=== PATIENT | female | born 1960 | race Caucasian/White ===

== ENCOUNTER 2022-12-26 12:52 | Outpatient (CLI) | payer BC, SELFPAY ==
--- NOTE | 2022-12-26 13:08 | MM_ITS ---
WS: [id number] BILATERAL SCREENING DIGITAL TOMOSYNTHESIS MAMMOGRAM WITH CAD HISTORY: SCREEN COMPARISON: 02/27/2012 Bilateral CC and MLO views with tomosynthesis and synthetic mammography submitted. Computer aided det ection analyzed. Breast composition: There are scattered areas of fibroglandular density. No suspicious masses, microc alcifications or architectural distortion. Benign calcifications in each breast. MM/[place] [id number] IMPRESSION: BI-RADS: 2-Benign FOLLOW UP: 1 Year Follow-up
== END 2022-12-26 12:53 | disposition home or self-care (01) ==
LOC: RAD 12:54
PROVIDERS: PCP Family Medicine; Visit Provider Family Medicine
DX: R53.83 Other fatigue (principal); I10 Essential (primary) hypertension; R01.1 Cardiac murmur, unspecified; G47.00 Insomnia, unspecified; Z12.31 Encounter for screening mammogram for malignant neoplasm of breast
CPT/HCPCS: 77063; 77067; 80053; 80061; 82607; 83880; 84443; 85025; 87624

== ENCOUNTER 2023-01-24 13:05 | Outpatient (CLI) | payer BC, SELFPAY ==
--- NOTE | 2023-01-24 13:00 | USCV_ITS ---
Lexi Reilly Age: 62 Gender: F : 1960 Exam Date: 01/24/2023 13:38 Ordering Phys: Zbigniew Vásquez MD Technologist: SONIA Exam Location: [facility] [place] [facility] Indication: [place] BP: 156 / 86 HR: 77 Rhythm: Sinus Technical Quality: Adequate MEASUREMENTS (Male / Female) Normal Values 2D ECHO LVOT Diameter 2.0 cm LV Ejection Fraction MOD 2C 62.7 % LV Ejection Fraction 2C AL 66.5 % LA Diameter 3.3 cm LA Width 3.3 cm LA Height 3.9 cm RA Width 2.9 cm RA Height 3.5 cm Aorta at Sinotubular Diameter 2.1 cm IVC Diameter 1.5 cm M-MODE Aortic Annulus Diameter 2.6 cm LA Ao Ratio MM 1.2 MV E Point Septal Separation 0.5 cm DOPPLER AV Peak Velocity 267.7 cm/s LVOT Peak Velocity 88.0 cm/s AV Area Cont Eq vti 0.9 cm squared AV Area Cont Eq pk 1.0 cm squared MV Peak Velocity 90.0 cm/s MV Area PHT 3.5 cm squared Mitral E to A Ratio 0.9 MV E' Velocity 52.5 cm/s Mitral E to MV E' Ratio 8.8 Mitral E to LV E' Lateral Ratio 7.9 Mitral E to LV E' Septal Ratio 10.0 TR Peak Velocity 217.1 cm/s TR Peak Gradient 18.9 mmHg TR Mean Velocity 144.3 cm/s TR Mean Gradient 9.9 mmHg TR Velocity Time Integral 57.7 cm TV Peak E Velocity 71.0 cm/s Right Atrial Pressure 3.0 mmHg Pulmonary Artery Systolic Pressu 21.9 mmHg PV Peak Velocity 153.0 cm/s RV Acceleration Time 0.1 s RV Ejection Time 0.3 s RV AcT/ET 0.4 FINDINGS Left Ventricle Normal left ventricular size and systolic function, EF 67 %. No regional wall motion abnormalities.Grade I/IV diastolic dysfunction (abnormal relaxation filling pattern), normal to mildly elevated filling pressures. Right Ventricle The right ventricle is normal in size and function. Right Atrium The right atrium is normal in size. Left Atrium The left atrium is normal in size. Mitral Valve No gross abnormalities noted Aortic Valve Severe low gradient aortic valve stenosis, mean gradient 19 mmHg, EMMA 0.88 cm squared. Peak velocity of 2.76 m/s with a peak gradient of 31 mmHg. The aortic valve appears to be trileaflet Tricuspid Valve No gross abnormalities noted Pulmonic Valve No gross abnormalities noted Pericardium No pericardial effusion. Aorta Normal ascending aorta dimension. IVC The inferior vena cava appears normal. CONCLUSIONS Normal left ventricular size and systolic function, EF 67 %. No regional wall motion abnormalities.Grade I/IV diastolic dysfunction (abnormal relaxation filling pattern), normal to mildly elevated filling pressures. Severe, normal flow, low gradient, aortic valve stenosis, mean gradient 19 mmHg, EMMA 0.88 cm squared. Peak velocity of 2.76 m/s with a peak gradient of 31 mmHg. The aortic valve appears to be trileaflet. There is no pericardial effusion. There are no intracardiac masses. No similar previous studies are available for comparison Dr Lori Johnson MD [facility] (Electronically Signed) Final Date: 24 January 2023 15:37 S
== END 2023-01-24 13:06 | disposition home or self-care (01) ==
PROVIDERS: PCP Family Medicine; Visit Provider Family Medicine
DX: I10 Essential (primary) hypertension (principal); R01.1 Cardiac murmur, unspecified; R53.83 Other fatigue
CPT/HCPCS: 93306

== ENCOUNTER 2023-03-26 06:40 | Outpatient (CLI) | payer BC, SELFPAY ==
[2023-03-26 07:01] VITALS: BMI 27.8
--- NOTE | 2023-03-26 07:06 | ECG_ITS ---
[facility] Test Date: 2023-03-26 Pat Name: Lexi Reilly Department: Room: Gender: Female High Lighter: Nadiyanika TaIvy : 1960 Requested By: Zbigniew Brower Order Number: [id number] Romero MD: Alissa Youssef M.D. Interpretive Statements NAME OF STUDY: LEXISCAN SESTAMIBI STRESS TEST INDICATION: Chest Pain PROCEDURE: At the baseline, the blood pressure was 144/75 mm Hg with a heart rate of 69 bpm. The electrocardiogram showed sinus rhythm, normal axis. Normal ST and T's. The Lexiscan was infused over a period of 20 seconds. A total of 0.4 milligrams of Lexiscan was infused. The stress phase was continued for a total of 5 minutes. Heart rate at the end of the stress phase was 83 bpm with a blood pressure of 151/65 mm Hg. The EKG at the peak infusion revealed no significant ST-T wave changes. Sestamibi was injected 20 seconds after the Lexiscan infusion. Blood pressure at the end of the recovery phase was 146/65 mm Hg with a heart rate of 84 beats per minute. CONCLUSION: 1. No significant EKG changes with the LexiScan infusion. 2. No LexiScan induced chest pain or cardiac arrhythmia. 3. Normal blood pressure and heart rate response. 4. Sestamibi/sestamibi perfusion scan pending; see separate report. Electronically Signed On 03-26-2023 14:07:42 CDT by Alissa Youssef M.D. [id number]
--- NOTE | 2023-03-26 07:08 | NMCV_ITS ---
NM vera perf SPECT r/s* [id number] Lexi Reilly Age: 63 Gender: F : 1960 Exam Date: 03/26/2023 07:08 Ordering Phys: Zbigniew Vásquez MD Technologist: TRESA Veras Exam Location: [facility] Indications: HYPERTENSION, CHEST PAIN STRESS TEST Please see separate stress test report in [facility] for full findings IMAGE PROTOCOL Rest/Stress 1 Lexiscan Day Radiopharmaceutical Dose (mCi) Administration Site Administered by Rest: Tc-99m 10.4 IV TRESA Segal Sestamibi Stress:Tc-99m 32.7 IV TRESA Segal Sestamibi Rest: 26-Mar-2023 60 Discovery 630 Stress: 26-Mar-2023 30 Discovery 630 0.4mg Lexiscan. Images obtained in supine and prone position. SPECT RESULTS Technical Quality: Excellent Raw Data Analysis: Normal Image Corrections: No attenuation or motion correction applied Summed Stress Score: 2 Summed Rest Score: 0 Summed Difference Score: 2 PERFUSION FINDINGS SPECT images demonstrate homogeneous tracer distribution throughout the myocardium. FUNCTIONAL RESULTS (calculated via Gated SPECT) Stress Image LV EF (%): 83 Stress EDV (mL):81 TID: 0.88 Stress ESV (mL):14 FUNCTIONAL FINDINGS: The left ventricle is normal in size. Transient Ischemia Dilatation of 0.88. The left ventricular ejection fraction is normal with a value of 83%. There is hyperdynamic left ventricular global systolic function. There is hyperdynamic left ventricular wall thickening. IMPRESSIONS 1. Myocardial perfusion imaging is normal. 2. Overall left ventricular systolic function is normal without regional wall motion abnormalities, LVEF=83%. 3. No EKG changes with Lexiscan infusion. 4. Scan indicates low risk for cardiac events. Alissa Youssef MD (Electronically Signed) Final Date: 26 March 2023 14:04 S
[2023-03-26] MEDS: regadenoson 0.4 Mg/5 ml Syringe IVP (08:27)
[2023-03-26 08:43] VITALS: BP 145/65; PULSE 83
== END 2023-03-26 06:41 | disposition home or self-care (01) ==
PROVIDERS: PCP Family Medicine; Visit Provider Physician Assistant
DX: R07.9 Chest pain, unspecified (principal); I10 Essential (primary) hypertension
CPT/HCPCS: 36415; 78452; 93017; 96374; A9500; J2785

== ENCOUNTER → 2024-06-08 13:50 | Outpatient (BNVA) | payer BC, SELFPAY | PROVIDERS: PCP Family Medicine; Visit Provider Family Medicine | DX: J06.9 Acute upper respiratory infection, unspecified (principal) | CPT/HCPCS: 87400; 87426 ==

== ENCOUNTER 2024-07-11 20:24 | Emergency (ER) | payer BC, SELFPAY ==
[2024-07-11 20:28] VITALS: BP 181/62; PULSE 84; RESP 16; TEMP 36.7; O2SAT 98; BMI 28.6
--- NOTE | 2024-07-12 00:07 | ED_ITS ---
HPI - Wound/Laceration 2 General: Chief Complaint: Wound/Laceration Stated Complaint: Rt Hand Index finger Cut Time Seen by Provider: 07/11/24 21:08 Source: patient and family Mode of arrival: ambulatory Limitations: no limitations History of Present Illness: Was cleaning a can of a recycling when she caught her finger between the can and the lid on it and it took a piece about her thumb. Would not stop dripping and bleeding and so she applied a bandage and put pressure and came up here. Anytime she takes pressure off the bandage it is still bleeding. Onset (ago): hour(s) Related Data Home Medications Medication Instructions Recorded Confirmed amlodipine 5 mg tablet mg PO 08/18/23 06/08/24 losartan 50 mg tablet mg PO 02/09/24 06/08/24 Previous Rx's Medication Instructions Recorded montelukast 10 mg tablet 10 mg PO DAILY #90 tabs 06/10/23 (Singulair) atorvastatin 10 mg tablet 10 mg PO DAILY #30 tabs 06/12/23 hydrochlorothiazide 25 mg tablet See Rx Instructions .Route 12/02/23 .COMPLEX #42 tabs trazodone 150 mg tablet 150 mg PO DAILY #30 tabs 01/08/24 ondansetron HCl 8 mg tablet 8 mg PO Q12H PRN nausea and 02/09/24 vomiting #10 tabs azithromycin 250 mg tablet See Rx Instructions PO .COMPLEX #6 06/08/24 (Zithromax Z-Nic) tabs ondansetron 4 mg disintegrating 4 mg PO Q6H PRN nausea and 06/08/24 tablet vomiting #20 tabs benzonatate 100 mg capsule 100 mg PO TID PRN cough #45 caps 06/10/24 Allergies Allergy/AdvReac Type Severity Reaction Status Date / Time sulfamethoxazole Allergy Severe severe Verified 07/11/24 20:32 [From Bactrim] N/V, dizziness, weakness and fatigue trimethoprim [From Bactrim] Allergy Severe severe Verified 07/11/24 20:32 N/V, dizziness, weakness and fatigue eszopiclone [From Lunesta] Allergy made her Verified 07/11/24 20:32 crazy penicillin V Allergy Unknown Verified 07/11/24 20:32 codeine AdvReac Intermediate Unknown Verified 07/11/24 20:32 tramadol [From Ultram] AdvReac Intermediate Unknown Verified 07/11/24 20:32 Review of Systems 2 General: Reports: 10 or more systems reviewed and unremarkable except in HPI and below PFSH ED 2 PFSH: Medical History Severe aortic stenosis Hypertension Family History Sister Breast cancer Family/Other Breast cancer aunt Mother Heart disease Father Heart disease High cholesterol Denies family history of Cervical cancer Colon cancer Ovarian cancer Thyroid cancer Diabetes Hypertension Uterine cancer Stroke Social History Smoking and tobacco/nicotine status: unknown if used tobacco/nicotine Physical Exam 2 Const: COMMON NORMALS: no acute distress, average body habitus, patient oriented x3, healthy appearing, alert and well nourished GENERAL APPEARANCE: well kempt and well developed HENMT: COMMON NORMALS: normocephalic, atraumatic, external ears normal and moist oral mucous membranes HEAD & SCALP: normocephalic and atraumatic E XTERNAL EAR: Yes external ears normal Eye: COMMON NORMALS: Equal, round and reactive pupils present, EOMs intact bilaterally and conjunctivae normal CONJUNCTIVA: Yes conjunctivae normal P UPIL: Yes Equal, round and reactive pupils present Neck/C-Spine: COMMON NORMALS: full ROM Resp: COMMON NORMALS: normal respiratory effort, No retractions and No use of accessory muscles Cardio: COMMON NORMALS: regular rate and regular rhythm RATE: regular rate RHYTHM: regular rhythm PERIPHERAL PULSES: other (Radial pulses 2+ and symmetric) Extremity: COMMON NORMALS: normal to inspection, full ROM, capillary refill normal and no clubbing, cyanosis or edema Neuro: COMMON NORMALS: patient oriented x3 SENSORIUM/ORIENTATION: Yes alert Psych: APPEARANCE: Yes well kempt Skin: COMMON NORMALS: no rashes or lesions noted, no wounds, turgor normal and no jaundice SKIN IMAGES (FEMALE): 1. 1 cm, fully avulsed/shaved laceration with small bleeding capillary artery. No nail involvement. GENERAL SKIN EXAM: no rashes or lesions noted and turgor normal Procedures Laceration Laceration 1: Site: hand (Tip of right index finger) Side (If applicable): right Size (cm): 1 Description: other (Fully avulsed or shaved section with removed/missing tissue) Depth: simple, single layer Local Anesthetic: bupivacaine 0.5% Amount of anesthesia used (mL): 10 Pre-repair: wound explored, irrigated extensively and deep structures intact Skin layer closed with: other (Prolene) Size (cm): 5-0 Number of sutures: 2 Technique: other (1 [id number] and 1 horizontal mattress) Course 2 Vital Signs: Vital signs: Vital Signs Temperature 98.1 F 07/11/24 20:28 Pulse Rate 84 07/11/24 20:28 Respiratory Rate 16 07/11/24 20:28 Blood Pressure 181/62 07/11/24 20:28 Pulse Oximetry 98 07/11/24 20:28 Oxygen Delivery Me thod Room Air 07/11/24 20:28 MDM - Wound/Laceration Medical Decision Making Patient tolerated appear well, once repaired, bleeding stopped wound hemostatic repair done under sterile conditions. Digital block was performed for the anesthetic. No complications with anesthesia. Medical Records I reviewed the patient's medical records. Lab Data I reviewed the patient's lab results. No radiology studies performed this visit Discharge Plan Discharge Patient Disposition: Home Clinical Impression: Laceration of finger of right hand Condition: Stable Prescriptions: No Action azithromycin [Zithromax Z-Nic] 250 mg tablet See Rx Instructions PO .COMPLEX Qty: 6 0RF Rx Instructions: For 250 mg dose pack: take 500 mg today (day 1), then 250 mg for 4 days (days 2-5) PO ondansetron 4 mg tablet,disintegrating 4 mg PO Q6H PRN (Reason: nausea and vomiting) Qty: 20 11RF amlodipine 5 mg tablet PO losartan 50 mg tablet PO ondansetron HCl 8 mg tablet 8 mg PO Q12H PRN (Reason: nausea and vomiting) Qty: 10 0RF montelukast [Singulair] 10 mg tablet 10 mg PO DAILY Qty: 90 3RF atorvastatin 10 mg tablet 10 mg PO DAILY Qty: 30 11RF hydrochlorothiazide 25 mg tablet See Rx Instructions .ROUTE .COMPLEX Qty: 42 11RF Dose Instruction: Take 1 tablet by mouth once daily Rx Instructions: Take 1 tablet by mouth once daily trazodone 150 mg tablet 150 mg PO DAILY Qty: 30 11RF benzonatate 100 mg capsule 100 mg PO TID PRN (Reason: cough) Qty: 45 0RF Discharge Orders: Discharge ED (Routine); Ordered 07/12/24 Ordered By: Sam Ryan Referrals: Zbigniew Vásquez MD [Primary Care Provider] - Discharge Activity: Resume usual activity Patient Instructions: Finger Laceration (ED) Activity Restrictions/Additional Instructions: Follow-up with your primary care, urgent care or the ER for suture removal in 10 days. Change bandage daily. Okay to wash hands and bathe do not soak. Coding Level of Care Code ED Jewelry Polisher for Meño Ibrahim
[2024-07-12 00:32] VITALS: PULSE 73; RESP 15; O2SAT 99
[2024-07-12] MEDS: BUPivacaine 0.5% INJ 10 mL INJECTION (00:32)
[2024-07-12 00:34] VITALS: BP 137/89; PULSE 73; O2SAT 96
== END 2024-07-12 00:36 | disposition home or self-care (01) ==
PROVIDERS: Emergency Provider Emergency Medicine; PCP Family Medicine
DX: S61.011A Laceration without foreign body of right thumb without damage to nail, initial encounter (principal); W26.8XXA Contact with other sharp object(s), not elsewhere classified, initial encounter
CPT/HCPCS: 12001; 99284; J3490

== ENCOUNTER 2025-01-14 13:28 | Outpatient (CLI) | payer BC, SELFPAY ==
--- NOTE | 2025-01-14 13:40 | MM_ITS ---
WS: [id number] BILATERAL 3D TOMOSYNTHESIS DIGITAL SCREENING MAMMOGRAPHY WITH CAD CLINICAL INFORMATION: SCREENING HISTORY: Screening mammogram. No current complaints. COMPARISON: 2022 TECHNIQUE: Bilateral CC and MLO views. FINDINGS: Scattered fibroglandular densities bilaterally. No suspicious focal mass, asymmetry, calcifications, or architectural distortion. No evidence of malignancy. Incidental punctate calcifications. MM/MM [facility] tomosynthesis [id number] IMPRESSION: DENSITY: There are scattered areas of fibroglandular density. BI-RADS: 2 - Benign. FOLLOW UP: 1 Year Follow-up Recommend return to annual screening mammography.
== END 2025-01-14 13:29 | disposition home or self-care (01) ==
LOC: RAD 13:29
PROVIDERS: PCP Nurse Practitioner Family; Visit Provider Nurse Practitioner Family
DX: Z12.31 Encounter for screening mammogram for malignant neoplasm of breast (principal); R92.323 Mammographic fibroglandular density, bilateral breasts; R92.1 Mammographic calcification found on diagnostic imaging of breast
CPT/HCPCS: 77063; 77067

== ENCOUNTER 2025-04-08 14:55 | Outpatient (CLI) | payer BC, SELFPAY ==
--- NOTE | 2025-04-08 15:12 | MR_ITS ---
WS: [id number] MRI HEAD WITH CONTRAST WITH ATTENTION TO THE INTERNAL AUDITORY CANALS TECHNIQUE: Sagittal T1, T2 axial, T2 axial flair, axial susceptibility weighted imaging, axial diffusion weighted images, and coronal T2 images were obtained. Pre and post T1 axial and post T1 coronal images. ADC and FSPGR images. Post gadolinium images with attention to the internal auditory canals. Axial fiesta imaging. CLINICAL INFORMATION: hearing loss LT COMPARISON: None. FINDINGS: Proximal 7th and 8th cranial nerves are normal in appearance. No evidence of enhancing IAC or CP angle mass. Normal trigeminal nerve root entry zones. Paranasal sinuses are well aerated. Mastoid air cells are well aerated. Normal posterior nasopharynx. No evidence of restricted diffusion to suggest acute ischemia. Mild small vessel changes. Mild parenchymal volume loss. Normal posterior fossa. Normal vascular flow voids at the skull base. No extra-axial fluid collections. MR/MR iac's wo/w con* [id number] IMPRESSION: 1. No evidence of enhancing IAC or CP angle mass. 7th and 8th cranial nerves a ppear normal. 2. No evidence of restricted diffusion to suggest acute ischemia. 3. Mild small vessel changes with mild parenchymal volume loss. 4. No hemosiderin on the susceptibly weighted images. 5. Paranasal sinuses and mastoid air cells are well aerated.
[2025-04-08] MEDS: gadobenate dimeglumine 20 mL vial 16 ML IV (15:46)
== END 2025-04-08 14:56 | disposition home or self-care (01) ==
LOC: RAD 14:58
PROVIDERS: PCP Nurse Practitioner Family; Visit Provider Specialist
DX: H90.3 Sensorineural hearing loss, bilateral (principal)
CPT/HCPCS: 70553